=== PATIENT | female | born 2000 ===

== ENCOUNTER 2023-12-24 14:32 | Observation (INO) | payer BC ==
[2023-12-24] MEDS: Sodium Chloride 0.9% 1,000 ML IV STA ×4 (15:00→18:55)
[2023-12-24] MEDS: Sodium Chloride 0.9% 2.5 ML Syringe FLUSH PRN (15:01)
[2023-12-24] MEDS: Sodium Chloride 0.9% 10 ML Syringe FLUSH PRN (15:02)
[2023-12-24] MEDS: Acetaminophen 500 MG Tab PO STA (15:02)
[2023-12-24 15:06] LABS: BASOPHILS ABSOLUTE AUTO 0.01 K/uL (0.00-0.20); BASOPHILS PERCENT AUTO 0.1 % (0.0-1.0); HEMATOCRIT 36.9 % (37.0-47.0); HEMOGLOBIN 12.8 g/dL (12.0-16.0); IMMATURE GRAN ABSOLUTE AUTO 0.09 K/uL (0.00-0.05); LYMPHOCYTES ABSOLUTE AUTO 0.37 K/uL (1.00-4.80); LYMPHOCYTES PERCENT AUTO 4.2 % (24.0-44.0); MEAN CORPUSCULAR HGB CONC 34.7 g/dL (32.0-36.0); MEAN CORPUSCULAR VOLUME 92.3 fL (83.0-99.0); MEAN PLATELET VOLUME 9.6 fL (9.4-12.3); MONOCYTES ABSOLUTE AUTO 0.56 K/uL (0.00-0.80); MONOCYTES PERCENT AUTO 6.3 % (0.0-8.0); NEUTROPHILS ABSOLUTE AUTO 7.85 K/uL (1.80-7.70); NEUTROPHILS PERCENT AUTO 88.4 % (41.0-71.0); PLATELET COUNT,PLT 212 K/uL (150-400); WHITE BLOOD CELL COUNT,WBC 8.88 K/uL (3.9-11.3)
[2023-12-24] MEDS: Ondansetron 4 MG/2 ML SDV IVPUSH STA (15:19)
[2023-12-24 15:33] LABS: INR 0.96 (0.86-1.11); PTT,PARTIAL THROMBOPLSTIN TIME 30.1 SEC (23.9-30.7)
[2023-12-24 15:45] LABS: LACTIC ACID 0.8 mmol/L (0.4-2.0)
[2023-12-24 15:52] LABS: A/G RATIO 0.7 (0.9-1.6); ALBUMIN 2.9 g/dL (3.4-5.0); BILIRUBIN TOTAL 0.9 mg/dL (0.2-1.0); CALCIUM 9.1 mg/dL (8.5-10.1); CARBON DIOXIDE,CO2 14.1 mmol/L (21.0-32.0); CREATININE 0.6 mg/dL (0.6-1.0); EST CRCL DRUG DOSING (CG) 117.31 mL/min; MAGNESIUM 1.6 mg/dL (1.8-2.4); POTASSIUM,K 3.7 mmol/L (3.5-5.1)
[2023-12-24 16:01] LABS: CORONAVIRUS COVID-19 NAA NEGATIVE (NEGATIVE); INFLUENZA A NAA POSITIVE (NEGATIVE); INFLUENZA B NAA NEGATIVE (NEGATIVE); RESPIRATORY SYNCYTIAL VIR NAA NEGATIVE (NEGATIVE)
[2023-12-24] MEDS: Magnesium Sulfate/Water 2 GM in Premix Bag 1 BAG IV STA (16:22)
[2023-12-24 16:54] LABS: APPEARANCE,URINE CLOUDY; BILIRUBIN,URINE NEGATIVE (NEGATIVE); GLUCOSE,URINE NEGATIVE (NEGATIVE); KETONES,URINE >=80 mg/dL (NEGATIVE); LEUKOCYTE ESTERASE,URINE MODERATE (NEGATIVE); NITRITE,URINE NEGATIVE (NEGATIVE); OCCULT BLOOD,URINE NEGATIVE (NEGATIVE); PROTEIN,URINE TRACE mg/dL (NEGATIVE); UROBILINOGEN,URINE 0.2 EU/dL (<2.0)
[2023-12-24 16:56] LABS: COLOR,URINE DARK YELLOW
[2023-12-24 17:05] LABS: BACTERIA,URINE 2+ (NEGATIVE); EPITHELIAL CELLS,URINE RARE (NONE-FEW); RBC,URINE 0-2 (0-2/HPF); WBC,URINE 15-28 (0-5/HPF)
[2023-12-24] MEDS: cefTRIAXone 1 GM in Sodium Chloride 0.9% 50 ML IV STA (17:29)
[2023-12-24] MEDS: Oseltamivir 75 MG Cap PO STA (20:09)
[2023-12-24] MEDS ORDERED: Sodium Chloride 0.9% 10 ML Syringe FLUSH PRN (21:25)
[2023-12-24] MEDS ORDERED: Sodium Chloride 0.9% 20 ML SDV IV PRN (21:25)
[2023-12-24] MEDS ORDERED: Sodium Chloride 0.9% 2.5 ML Syringe FLUSH PRN (21:25)
[2023-12-24] MEDS: Lactated Ringers 1,000 ML IV SCH (23:38)
[2023-12-24] MEDS: Acetaminophen 500 MG Tab PO PRN (23:45)
[2023-12-24] MEDS: Ondansetron 4 MG/2 ML SDV IVPUSH PRN (23:46)
[2023-12-25 05:45] LABS: HEMATOCRIT 30.5 % (37.0-47.0); HEMOGLOBIN 10.2 g/dL (12.0-16.0); MEAN CORPUSCULAR HEMOGLOBIN 31.9 pg (28.0-32.0); MEAN CORPUSCULAR HGB CONC 33.4 g/dL (32.0-36.0); MEAN CORPUSCULAR VOLUME 95.3 fL (83.0-99.0); MEAN PLATELET VOLUME 9.6 fL (9.4-12.3); PLATELET COUNT,PLT 176 K/uL (150-400); WHITE BLOOD CELL COUNT,WBC 5.41 K/uL (3.9-11.3)
[2023-12-25] MEDS: cefTRIAXone 1 GM in Sodium Chloride 0.9% 50 ML IV ONE (05:53)
[2023-12-25 06:14] LABS: A/G RATIO 0.7 (0.9-1.6); ALBUMIN 2.2 g/dL (3.4-5.0); BILIRUBIN TOTAL 0.6 mg/dL (0.2-1.0); CALCIUM 8.2 mg/dL (8.5-10.1); CARBON DIOXIDE,CO2 15.7 mmol/L (21.0-32.0); CREATININE 0.6 mg/dL (0.6-1.0); EST CRCL DRUG DOSING (CG) 117.31 mL/min; POTASSIUM,K 4.1 mmol/L (3.5-5.1); PROTEIN TOTAL,TP 5.6 g/dL (6.4-8.2)
[2023-12-25 08:40] LABS: APPEARANCE,URINE CLEAR; BILIRUBIN,URINE NEGATIVE (NEGATIVE); COLOR,URINE YELLOW; GLUCOSE,URINE NEGATIVE (NEGATIVE); KETONES,URINE >=80 mg/dL (NEGATIVE); LEUKOCYTE ESTERASE,URINE TRACE (NEGATIVE); NITRITE,URINE NEGATIVE (NEGATIVE); OCCULT BLOOD,URINE NEGATIVE (NEGATIVE); PH,URINE 5.5 (5.0-8.0); PROTEIN,URINE NEGATIVE (NEGATIVE); UROBILINOGEN,URINE 0.2 EU/dL (<2.0)
== END 2023-12-25 10:28 | disposition home or self-care (01) ==
LOC: MW.ED 14:32 → MW.OB 20:01
PROVIDERS: ADMIT Obstetrics & Gynecology; ATTEND Obstetrics & Gynecology
DX: O99.513 Diseases of the respiratory system complicating pregnancy, third trimester (principal); J10.1 Influenza due to other identified influenza virus with other respiratory manifestations; O98.813 Other maternal infectious and parasitic diseases complicating pregnancy, third trimester; A41.9 Sepsis, unspecified organism; O23.43 Unspecified infection of urinary tract in pregnancy, third trimester; N39.0 Urinary tract infection, site not specified; Z3A.33 33 weeks gestation of pregnancy
CPT/HCPCS: 0241U; 36415; 59025; 80053; 81001; 81003; 83605; 83690; 83735; 85025; 85027; 85610; 85730; 87040; 87086; 93005; 93010; 99285; A9270-GY; J0696; J2405; J3475; J3490; J7030; J7120

== ENCOUNTER 2023-12-30 23:35 | Observation (INO) | payer BC ==
[2023-12-31] MEDS ORDERED: Sodium Chloride 0.9% 2.5 ML Syringe FLUSH PRN (00:38)
[2023-12-31] MEDS ORDERED: Sodium Chloride 0.9% 20 ML SDV IV PRN (00:38)
[2023-12-31] MEDS ORDERED: Sodium Chloride 0.9% 10 ML Syringe FLUSH PRN (00:38)
[2023-12-31] MEDS: Ondansetron 4 MG/2 ML SDV IVPUSH PRN (01:26)
[2023-12-31] MEDS: Lactated Ringers 1,000 ML IV SCH ×2 (01:29→12:29)
[2023-12-31 02:04] LABS: CARBON DIOXIDE,CO2 21.7 mmol/L (21.0-32.0); CREATININE 0.5 mg/dL (0.6-1.0); EST CRCL DRUG DOSING (CG) 140.77 mL/min; POTASSIUM,K 3.1 mmol/L (3.5-5.1)
[2023-12-31 02:30] LABS: APPEARANCE,URINE CLEAR; BILIRUBIN,URINE NEGATIVE (NEGATIVE); COLOR,URINE YELLOW; GLUCOSE,URINE NEGATIVE (NEGATIVE); KETONES,URINE >=80 mg/dL (NEGATIVE); LEUKOCYTE ESTERASE,URINE NEGATIVE (NEGATIVE); NITRITE,URINE NEGATIVE (NEGATIVE); OCCULT BLOOD,URINE NEGATIVE (NEGATIVE); PROTEIN,URINE TRACE mg/dL (NEGATIVE); UROBILINOGEN,URINE 0.2 EU/dL (<2.0)
[2023-12-31 02:34] LABS: BACTERIA,URINE FEW (NEGATIVE); EPITHELIAL CELLS,URINE FEW (NONE-FEW); MUCUS,URINE LIGHT (NONE-MOD); RBC,URINE 0-2 (0-2/HPF); WBC,URINE 0-1 (0-5/HPF)
[2023-12-31 05:58] LABS: CANDIDA DNA PROBE NEGATIVE (NEGATIVE); GARDNERELLA DNA PROBE POSITIVE (NEGATIVE); TRICHOMONAS DNA PROBE NEGATIVE (NEGATIVE)
[2023-12-31] MEDS: Terbutaline 1 MG/ML SDV SUBCUT ONE (07:26)
[2023-12-31] MEDS: Betamethasone Acetate/Betamethasone Sod Phosphate 6 MG/1 ML MDV IM ONE (07:39)
[2023-12-31] MEDS: NS + KCl 20mEq/L 1,000 ML IV SCH (13:45)
[2024-01-01 03:51] LABS: GROUP B STREP BY PCR NEGATIVE (NEGATIVE)
== END 2023-12-31 16:20 | disposition home or self-care (01) ==
LOC: MW.OB 23:35 → MW.OBCHECK 23:35 → MW.OB 12-31 00:38 → MW.OBCHECK 12-31 00:38
PROVIDERS: ADMIT Obstetrics & Gynecology; ATTEND Obstetrics & Gynecology
DX: O47.03 False labor before 37 completed weeks of gestation, third trimester (principal); O24.419 Gestational diabetes mellitus in pregnancy, unspecified control; O98.513 Other viral diseases complicating pregnancy, third trimester; Z3A.34 34 weeks gestation of pregnancy
CPT/HCPCS: 36415; 59025; 80048; 81001; 87480; 87510; 87653; 87660; J0702; J2405; J3105; J3480; J7120; 96361; 96372; 96374; 96375; G0378

== ENCOUNTER 2024-02-15 05:59 | Inpatient (IN) | payer BC ==
[2024-02-15] MEDS ORDERED: Water For Irrigation,Sterile 1,000 ML Container IRR PRN (14:31)
[2024-02-15] MEDS ORDERED: Misoprostol 200 MCG Tab PO PRN (14:31)
[2024-02-15] MEDS ORDERED: Methylergonovine 0.2 MG/1 ML Amp IM PRN (14:31)
[2024-02-15] MEDS ORDERED: Lidocaine 1% 50 ML MDV INJECT PRN (14:31)
[2024-02-15] MEDS ORDERED: Tranexamic Acid IN NACL,ISO-OS 1,000 MG in Premix Bag 1 BAG IV PRN (14:31)
[2024-02-15] MEDS ORDERED: Sodium Chloride 0.9% 10 ML Syringe FLUSH PRN (14:31)
[2024-02-15] MEDS ORDERED: Sodium Chloride 0.9% 2.5 ML Syringe FLUSH PRN (14:31)
[2024-02-15] MEDS ORDERED: Terbutaline 1 MG/ML SDV SUBCUT PRN (14:31)
[2024-02-15] MEDS ORDERED: Sodium Chloride 0.9% 20 ML SDV IV PRN (14:31)
[2024-02-15] MEDS ORDERED: Carboprost Tromethamine 250 MCG/1 mL Vial IM PRN (14:31)
[2024-02-15] MEDS ORDERED: Butorphanol 2 MG/ML SDV IVPUSH PRN (14:31)
[2024-02-15] MEDS ORDERED: Oxytocin/0.9 % Sodium Chloride 30 UNIT/500 ML BAG IV SCH (14:45)
[2024-02-15] MEDS ORDERED: Diphtheria,Pertussis(Acell),Tetanus Vaccine 0.5 ML Syringe IM ONE (15:11)
[2024-02-15 15:28] LABS: HEMATOCRIT 37.8 % (37.0-47.0); MEAN CORPUSCULAR HEMOGLOBIN 30.8 pg (28.0-32.0); MEAN CORPUSCULAR HGB CONC 34.4 g/dL (32.0-36.0); MEAN CORPUSCULAR VOLUME 89.6 fL (83.0-99.0); MEAN PLATELET VOLUME 11.7 fL (9.4-12.3); PLATELET COUNT,PLT 219 K/uL (150-400); RED BLOOD CELL COUNT 4.22 M/uL (4.10-5.30); WHITE BLOOD CELL COUNT,WBC 8.89 K/uL (3.9-11.3)
[2024-02-15] MEDS: Lactated Ringers 1,000 ML IV SCH (16:08)
[2024-02-15] MEDS: Oxytocin/0.9 % Sodium Chloride 30 UNIT/500 ML BAG IV SCH (16:10)
[2024-02-15 16:18] LABS: CALCIUM 9.8 mg/dL (8.5-10.1); CARBON DIOXIDE,CO2 27.2 mmol/L (21.0-32.0); CREATININE 0.7 mg/dL (0.6-1.0); EST CRCL DRUG DOSING (CG) 100.55 mL/min
[2024-02-16] MEDS ORDERED: Bupivacaine 0.5% 10 ML SDV ONE (00:03)
[2024-02-16] MEDS ORDERED: Phenylephrine HCl In 0.9% NaCl 1 MG/10 ML Syringe ONE (00:03)
[2024-02-16] MEDS: Ropivacaine HCl/PF 200 ML ONE (00:19)
[2024-02-16] MEDS ORDERED: Phenylephrine HCl In 0.9% NaCl 1 MG/10 ML Syringe IVPUSH PRN (00:25)
[2024-02-16] MEDS ORDERED: ePHEDrine 50 MG/ML SDV IVPUSH PRN ×2 (00:25)
[2024-02-16] MEDS ORDERED: Ropivacaine HCl/PF 400 MG in Premix Bag 1 BAG EPIDUR SCH (00:30)
[2024-02-16] MEDS ORDERED: oxyCODONE 5 MG Tab PO PRN (06:26)
[2024-02-16] MEDS ORDERED: Acetaminophen 500 MG Tab PO PRN (06:26)
[2024-02-16] MEDS ORDERED: Lanolin 100% Cream 7 GM Tube TOP PRN (06:26)
[2024-02-16 07:03] LABS: PH,UMBILICAL ARTERIAL 7.35 (7.18-7.38); PH,UMBILICAL VENOUS 7.344 (7.25-7.45)
[2024-02-16] MEDS: Benzocaine/Menthol 20%-0.5% Spray 78 GM Cannister TOP PRN (09:57)
[2024-02-16] MEDS: Witch Hazel Medicated Pads 40/Jar TOP PRN (09:57)
[2024-02-16] MEDS: Ibuprofen 800 MG Tab PO PRN (10:52)
[2024-02-16] MEDS: Docusate Sodium 100 MG Cap PO PRN (21:57)
[2024-02-17 06:18] LABS: HEMOGLOBIN 12.1 g/dL (12.0-16.0)
[2024-02-17 06:36] LABS: CALCIUM 8.7 mg/dL (8.5-10.1); CARBON DIOXIDE,CO2 22.4 mmol/L (21.0-32.0); CREATININE 0.7 mg/dL (0.6-1.0); EST CRCL DRUG DOSING (CG) 100.55 mL/min; POTASSIUM,K 3.7 mmol/L (3.5-5.1)
== END 2024-02-17 15:00 | disposition home or self-care (01) | DRG 560 ==
LOC: MW.OB 05:59 → OBSVTOIN 02-16 05:59 → MW.OB 02-16 10:07
PROVIDERS: ADMIT Obstetrics & Gynecology; ATTEND Obstetrics & Gynecology
PROC: 10E0XZZ Delivery of Products of Conception, External Approach (ICD-10-PCS; principal; 2024-02-16)
PROC: 0HQ9XZZ Repair Perineum Skin, External Approach (ICD-10-PCS; 2024-02-16)
PROC: 3E0R3BZ Introduction of Anesthetic Agent into Spinal Canal, Percutaneous Approach (ICD-10-PCS; 2024-02-16)
PROC: 00HU33Z Insertion of Infusion Device into Spinal Canal, Percutaneous Approach (ICD-10-PCS; 2024-02-16)
PROC: 3E033VJ Introduction of Other Hormone into Peripheral Vein, Percutaneous Approach (ICD-10-PCS; 2024-02-16)
DX: O24.420 Gestational diabetes mellitus in childbirth, diet controlled (principal); O70.0 First degree perineal laceration during delivery; O48.0 Post-term pregnancy; Z3A.41 41 weeks gestation of pregnancy; Z37.0 Single live birth
CPT/HCPCS: 01967; 36415; 51702; 59025; 59409; 80048; 82803; 82947; 85014; 85018; 85027; 86592; 86850; 86900; 86901; A9270-GY; J0665; J2371; J2590; J2795; J7120